=== PATIENT | male | born 1980 | race Two or more races ===

== ENCOUNTER 2021-01-31 10:32 | Emergency (ER) | payer OTHER ==
[2021-01-31 10:39] VITALS: BP 122/66
--- NOTE | 2021-01-31 11:39 | ED Physician Documentation ---
History of Present Illness - Stated complaint Stated Complaint: LEFT LEG PX - Chief complaint Chief Complaint: General - History obtained from History obtained from: Patient - History of Present Illness Timing: How many days ago (3) Pain level max: 3 Pain level now: 2 - Additonal information Additional information: Patient is a 40-year-old male who presents to the emergency department with left leg pain, redness and swelling. Started a few days ago, tried to squeeze the area last night but nothing came out. Has continued redness, swelling and pain today. Worse with palpation, nothing makes it better. No fevers. No chills. No IV drug use. Review of Systems Constitutional: denies: Fever, Chills GI: denies: Vomiting, Diarrhea PD PAST MEDICAL HISTORY - Past Medical History Past Medical History: No - Past Surgical History Past Surgical History: No - Present Medications Home Medications: Ambulatory Orders Medication Instructions Recorded Confirmed Sulfamethox/Trimeth 800/160 1 each PO BID #20 tablet 01/31/21 [Bactrim Ds 800/160] cephALEXin [Keflex] 500 mg PO Q6H #40 cap 01/31/21 - Allergies Allergies/Adverse Reactions: Allergies Allergy/AdvReac Type Severity Reaction Status Date / Time No Known Drug Allergies Allergy Verified 01/31/21 10:39 - Living Situation Living Arrangement: reports: At home - Social History Does the pt have substance abuse?: No - Family History Family history: reports: Non contributory - Immunizations Immunizations: TDAP current <10years PD ED PE NORMAL - Vitals Vital signs reviewed: Yes - General General: Alert and oriented X 3, No acute distress, Well developed/nourished - HEENT HEENT: Moist mucous membranes - Neck Neck: Supple, no meningeal sign - Derm Derm: Warm and dry - Extremities Extremities: Other (3 x 3 cm area of erythema to the left inner thigh. Mild swelling. No fluctuance. No drainage.) - Neuro Neuro: Alert and oriented X 3 - Psych Psych: Normal mood, Normal affect Results - Vitals Vitals: Vital Signs - 24 hr 01/31/21 10:36 Temperature 36.6 C Heart Rate 74 Respiratory 15 Rate Blood Pressure 122/66 O2 Saturation 99 Oxygen O2 Source Room air PD MEDICAL DECISION MAKING - ED course Complexity details: considered differential, d/w patient ED course: Small amount of cellulitis with early induration, and for drainage at this time. We will place on antibiotics and warm compresses for home. Patient will return if he fails to improve as expected. Patient is here visiting from out of town. Patient counseled regarding signs and symptoms for which I believe and urgent re-evaluation would be necessary. Patient with good understanding of and agreement to plan and is comfortable going home at this time This document was made in part using voice recognition software. While efforts are made to proofread this document, sound alike and grammatical errors may occur. Departure - Departure Disposition: Home, Self Care Clinical Impression: Cellulitis Qualifiers: Site of cellulitis: extremity Site of cellulitis of extremity: lower extremity Laterality: left Qualified Code(s): L03.116 - Cellulitis of left lower limb Condition: Good Instructions: ED Infec Skin Cellulitis Follow-Up: your,doctor as needed. [Other] Prescriptions: Sulfamethox/Trimeth 800/160 [Bactrim Ds 800/160] 1 each PO BID #20 tablet cephALEXin [Keflex] 500 mg PO Q6H #40 cap Comments: Take all antibiotics until gone. Return if you worsen. Also apply warm water soaks 2-3 times daily. At this point there is nothing to incise and drain on your low leg, should the swelling increase and there become a soft area in the center, drainage may become necessary. This should improve over the next 24 to 48 hours. Your prescriptions were [facility] [place].
== END 2021-01-31 11:50 | disposition home or self-care (01) ==
LOC: ED 10:32
DX: L03.116 Cellulitis of left lower limb (principal)
CPT/HCPCS: 99282; 99283